=== PATIENT | female | born 1985 | race American Indian/Alaskan Native ===

== ENCOUNTER 2020-12-17 12:29 | Emergency (ER) | payer SELFPAY ==
[2020-12-17 12:42] VITALS: BP 115/68
--- NOTE | 2020-12-17 13:05 | Event Note ---
ED Screening Note Date of service: 12/17/20 Time: 13:04 ED Screening Note: 35-year-old female patient with history of gonorrhea presents to emergency department with complaints of lower abdominal cramps. States her male partner recently informed her that he was noticing clear penile discharge. She is concerned about STD exposure. No known history of PID. General: Awake, appropriately interactive, no acute distress. Neck: Supple. Full range of motion intact. Cardiovascular: Normal peripheral perfusion. Pulmonary: No respiratory distress. Patient is speaking normally without use of accessory muscles. Skin: No apparent rashes or lesions. Neurological: No facial asymmetry. Speech is clear. Follows commands. Patient is alert and oriented. Musculoskeletal: Moves all four extremities spontaneously with normal range of motion. Psych: Cooperative. Appropriate mood and affect. I have greeted and performed a focused rapid initial assessment of this patient. A comprehensive ED assessment and evaluation of the patient, analysis of all test results, and completion of the medical decision-making process will be conducted by additional ED providers. This initial assessment/diagnostic orders/clinical plan/treatment(s) is/are subject to change based on patients health status, clinical progression and re-assessment. Further treatment and workup at subsequent clinical provider's discretion. Patient/guardian urged not to elope from the ED as their condition may be serious if not clinically assessed and managed.
[2020-12-17] MEDS ORDERED: LIDOCAINE-MPF (1%) 10 MG/1 ML VIAL 5 ML INFILTRATI ONE (13:19)
--- NOTE | 2020-12-17 13:21 | Emergency Department Report ---
ED Dysuria HPI - HPI Chief Complaint: Urogenital-Female Stated Complaint: VAGINAL DISCHARGE Time Seen by Provider: 12/17/20 13:19 Duration: 3 Days Location of Discomfort: Other Severity: Mild Symptoms: Dysuria: No, Frequency: No, Suprapubic Pain: No, Flank Pain: No, Fever: No, Hematuria: No, Abdominal Pain: No, Previous UTI's: No Other History: Patient is a 35-year-old -German female that comes to the ER today complaining of exposure to STD. She states that her partner has penile discharge. She has no symptoms at this time but is concerned for gonorrhea. Patient denies fever or chills. She denies discharge. She denies irregular vaginal bleeding. She denies abdominal pain. She denies back pain. Patient ambulatory nontoxic and [id number] on arrival to [facility] ED Review of Systems ROS: Stated complaint: VAGINAL DISCHARGE Other details as noted in HPI Comment: All other systems reviewed and negative ED Past Medical Hx - Past Medical History Previous Medical History?: No - Surgical History Past Surgical History?: No - Family History Family history: no significant - Social History Smoking Status: Never Smoker Substance Use Type: None - Medications Home Medications: Home Medications Medication Instructions Recorded Confirmed Last Taken Type Azithromycin [Zithromax Z-VALENTINO] 1,000 mg PO ONCE #4 tablet 12/17/20 Unknown Rx metroNIDAZOLE [Flagyl] 2,000 mg PO ONCE #4 tablet 12/17/20 Unknown Rx Dysuria Exam - Exam General: Vital signs noted. No distress. Alert and acting appropriately. Exam: Yes Moist Mucous Membranes, No CVA Tenderness, No Abdominal Tenderness, No Rigidity or Guarding ED Course Vital Signs 12/17/20 12:36 Temperature 98.3 F Pulse Rate 66 Respiratory 18 Rate Blood Pressure 115/68 O2 Sat by Pulse 97 Oximetry ED Medical Decision Making - Medical Decision Making Vital Signs 12/17/20 12:36 Temperature 98.3 F Pulse Rate 66 Respiratory 18 Rate Blood Pressure 115/68 O2 Sat by Pulse 97 Oximetry Patient has known STI exposure. She reports her partner having told her that he has discharge. She states that she is concerned for gonorrhea. Although she denies that he stated that he had gonorrhea. Patient going to be treated empirically with a gram of Rocephin here in the ER. She is being discharged with a azithromycin and Flagyl which she understands that she needs to take today all at one time. Patient has been advised on safe sex. Patient being discharged home with [employer] follow-up. She verbalizes understanding of discharge plan of care. She understands that the medications given to make her nauseated. She understands that she needs to perform safe sex - Differential Diagnosis Known STI exposure Critical care attestation.: If time is entered above; I have spent that time in minutes in the direct care of this critically ill patient, excluding procedure time. ED Disposition Clinical Impression: STD exposure Disposition: DC- TO HOME OR SELFCARE Is pt being admited?: No Does the pt Need Aspirin: No Condition: Stable Instructions: Safe Sex Additional Instructions: SAFE SEX MEDS ORDERED TODAY FOLLOW UP WITH OBGYN REFERRAL BELOW Prescriptions: metroNIDAZOLE [Flagyl] 2,000 mg PO ONCE #4 tablet Azithromycin [Zithromax Z-VALENTINO] 1,000 mg PO ONCE #4 tablet Referrals: KIMANI GREGORY MD [Staff Physician] - 3-5 Days Forms: Work/School Release Form(ED) Time of Disposition: 13:20
[2020-12-17 13:47] LABS: HCG Qualitative,Urine Negative (Negative)
[2020-12-17 13:49] LABS: Bacteria,Urine 1+ /HPF (Negative); Bilirubin,Urine NEG (Negative); Blood,Urine NEG (Negative); Color,Urine Yellow (Yellow); Mucus,Urine FEW /HPF; Protein,Urine <15 mg/dL mg/dL (Negative)
== END 2020-12-17 14:25 | disposition home or self-care (01) ==
LOC: ED 12:29
DX: Z20.2 Contact with and (suspected) exposure to infections with a predominantly sexual mode of transmission (principal); R30.0 Dysuria
CPT/HCPCS: 81001; 81025; 96372; 99283; J0696